=== PATIENT | female | born 1950 | race Caucasian/White ===

== ENCOUNTER 2021-05-03 14:47 | Inpatient (IN) ==
[2021-05-03] MEDS ORDERED: Ondansetron 4 MG/2 ML VIAL IVP PRN (18:01)
[2021-05-03] MEDS ORDERED: Naloxone 0.4 MG/ML INJ IVP PRN (18:01)
[2021-05-03] MEDS ORDERED: Acetaminophen 325 MG TABLET PO PRN (18:01)
[2021-05-03] MEDS ORDERED: *HR* Heparin 5,000 UNIT/ML VIAL IVP PRN ×2 (18:27)
[2021-05-03 18:40] LABS: Basophils % 0.5 %; Eosinophils # 0.2 K/mcL (0.0-0.6); Eosinophils % 2.8 %; Hematocrit 27.9 % (35.3-44.9); Hemoglobin 9.2 g/dL (11.5-15.4); Immature Granulocytes % 0.8 % (0-4); Lymphocytes # 0.7 K/mcL (0.6-4.6); Lymphocytes % 11.5 %; Mean Corpuscular Hemoglobin 30.6 pg (28.0-33.3); Mean Corpuscular Volume 92.7 fL (83.0-100.0); Mean Platelet Volume 10.6 fL (9.4-12.4); Monocytes # 0.6 K/mcL (0.0-1.3); Monocytes % 9.9 %; Neutrophils # 4.5 K/mcL (1.6-8.9); Platelet Count 130 K/mcL (140-400); Red Blood Count 3.01 M/mcL (3.82-4.97); Red Cell Distribution Width 16.6 % (11.5-14.5); Segmented Neutrophils % 74.5 %; White Blood Count 6.1 K/mcL (4.3-11.1)
[2021-05-03 18:49] LABS: VBG HCO3 26 mEq/L (21-27); VBG PCO2 44 mmHg (41-51); VBG PH 7.38 pH Units (7.32-7.42); VBG PO2 96 mmHg (25-50)
[2021-05-03 19:08] LABS: Alanine Aminotransferase 8 Units/L (7-52); Albumin/Globulin Ratio 1.1 (1.1-2.2); Alkaline Phosphatase 81 Units/L (34-104); Aspartate Amino Transferase 9 Units/L (13-39); BUN/Creatinine Ratio 21 (6-26); Bilirubin,Total 0.2 mg/dL (0.3-1.0); Blood Urea Nitrogen 45 mg/dL (8-23); Calcium 8.5 mg/dL (8.6-10.3); Carbon Dioxide 24 mEq/L (23-29); Chloride 109 mEq/L (98-107); Globulin 2.8 g/dL (2.4-3.5); Glucose 318 mg/dL (70-105); Magnesium 2.1 mg/dL (1.6-2.6); Osmolality,Calculated 322 (280-300); Potassium 4.4 mEq/L (3.5-5.1); Sodium 144 mEq/L (136-145); Total Protein 5.8 g/dL (6.4-8.9); Troponin I < 0.03 ng/mL (< 0.04); eGFR For African Americans 28 (> 60); eGFR For Non-African Americans 23 (> 60)
[2021-05-03] MEDS: MethylPREDNISolone 40 MG/ML VIAL IVP SCH (19:17)
[2021-05-03] MEDS: Heparin 25,000UNIT/250ML 1/2NS 25,000 UNIT/250 ML IV.SOLN IVC SCH (19:20)
[2021-05-03] MEDS ORDERED: D5% in Water 1,000 ML IVC PRN (19:28)
[2021-05-03] MEDS ORDERED: *HR* Dextrose 50 % in Water (Syg) 50 ML SYRINGE IVP PRN (19:28)
[2021-05-03] MEDS ORDERED: Dextrose Gel 15 GM/37.5 ML TUBE PO PRN ×2 (19:28)
[2021-05-03] MEDS: Ipratropium/Albuterol Neb 3 ML IH SCH ×2 (20:15→23:40)
[2021-05-03] MEDS: Insulin LISPRO 300 UNITS/3 ML VIAL SUBQ SCH ×2 (20:28→21:00)
[2021-05-03 21:05] LABS: Heparin anti-factor XA UFH 0.38 IU/mL (0.30-0.70); Prothrombin Time 10.9 Seconds (9.4-12.1)
[2021-05-03 21:07] LABS: Activated Partial Thrombo Time 48.6 Seconds (26.0-36.0)
[2021-05-03 23:39] LABS: Adenovirus Not Detected (Not Detect); Bordetella Pertussis Not Detected (Not Detect); Chlamydophila pneumoniae Not Detected (Not Detect); Coronavirus 229E Not Detected (Not Detect); Coronavirus HKU1 Not Detected (Not Detect); Coronavirus NL63 Not Detected (Not Detect); Coronavirus OC43 Not Detected (Not Detect); Human Metapneumovirus Not Detected (Not Detect); Human Rhinovirus/Enterovirus Not Detected (Not Detect); Influenza A Subtype 2009 H1 Not Detected (Not Detect); Influenza B Not Detected (Not Detect); Mycoplasma pneumoniae Not Detected (Not Detect); Parainfluenza Virus 1 Not Detected (Not Detect); Parainfluenza Virus 2 Not Detected (Not Detect); Parainfluenza Virus 3 Not Detected (Not Detect); Parainfluenza Virus 4 Not Detected (Not Detect); Respiratory Syncytial Virus Not Detected (Not Detect); SARS-CoV-2 Not Detected (Not Detect)
[2021-05-04 01:56] LABS: Hematocrit 28.1 % (35.3-44.9); Mean Corpuscular Hemoglobin 29.3 pg (28.0-33.3); Mean Corpuscular Volume 91.5 fL (83.0-100.0); Mean Platelet Volume 11.3 fL (9.4-12.4); Platelet Count 122 K/mcL (140-400); Red Blood Count 3.07 M/mcL (3.82-4.97); Red Cell Distribution Width 16.4 % (11.5-14.5); White Blood Count 5.1 K/mcL (4.3-11.1)
[2021-05-04 02:12] LABS: BUN/Creatinine Ratio 21 (6-26); Blood Urea Nitrogen 43 mg/dL (8-23); Calcium 8.7 mg/dL (8.6-10.3); Carbon Dioxide 24 mEq/L (23-29); Chloride 110 mEq/L (98-107); Glucose 322 mg/dL (70-105); Osmolality,Calculated 321 (280-300); Potassium 4.8 mEq/L (3.5-5.1); Sodium 144 mEq/L (136-145); eGFR For African Americans 30 (> 60); eGFR For Non-African Americans 24 (> 60)
[2021-05-04 02:26] LABS: Thyroid Stimulating Hormone 0.791 mcIU/mL (0.340-5.600)
[2021-05-04 02:47] LABS: Potassium,Urine 26.1 mEq/L; Sodium, Urine 49.7 mEq/L
[2021-05-04 02:56] LABS: Amorphous Sediment,Urine Few per hpf (None-Few); Bacteria,Urine Few per hpf (None-Few); Bilirubin,Urine Negative (Negative); Blood,Urine Moderate (Negative); Clarity,Urine Ex.Turbid (Clear); Color,Urine Yellow (Yellow); Glucose,Urine (UA) >=1000 mg/dL (Normal); Hyaline Casts,Urine Few per lpf (None Seen); Ketones,Urine 10 mg/dL (Negative); Leukocyte Esterase,Urine Large (Negative); Mucus,Urine Few per lpf (None-Few); Nitrite,Urine Negative (Negative); Protein,Urine >=300 mg/dL (Neg-Trace); RBC,Urine 15-30 per hpf (0-3); Specific Gravity,Urine 1.021 (1.010-1.025); Transitional Epi Cells,Urine Few per hpf (None-Few); Urobilinogen,Urine Normal (Normal); WBC,Urine TNTC per hpf (0-3)
[2021-05-04 03:07] LABS: Troponin I < 0.03 ng/mL (< 0.04)
[2021-05-04] MEDS: Ipratropium/Albuterol Neb 3 ML IH SCH ×6 (04:02→23:59)
[2021-05-04] MEDS ORDERED: Perflutren Lipid Microsphere 1.3 ML in 0.9 % Sodium Chloride 8.7 ML IVP PRN (04:12)
[2021-05-04] MEDS: MethylPREDNISolone 40 MG/ML VIAL IVP SCH ×2 (05:45→17:19)
[2021-05-04] MEDS: cefTRIAXone 1,000 MG in 0.9 % Sodium Chloride Mini Bag 100 ML IVPB SCH (08:25)
[2021-05-04] MEDS: Insulin LISPRO 300 UNITS/3 ML VIAL SUBQ SCH ×5 (08:25→20:57)
[2021-05-04] MEDS: Heparin 25,000UNIT/250ML 1/2NS 25,000 UNIT/250 ML IV.SOLN IVC SCH (15:03)
[2021-05-04] MEDS ORDERED: Budesonide/Formoterol 160/4.5 1 PUFF INH IH PRN (16:41)
[2021-05-04] MEDS ORDERED: NON-FORMULARY MEDICATION 1 EACH EACH (Alendronate Sodium [Fosamax] 70 MG Tablet) PO SCH (16:45)
[2021-05-04] MEDS: carvediloL 25 MG TABLET PO SCH (17:15)
[2021-05-04 18:30] LABS: Protein/Creatinine Ratio,Urine 11.6 mg/mg (0.00-0.20)
[2021-05-04] MEDS: gemfibroziL 600 MG TABLET PO SCH (20:56)
[2021-05-04] MEDS: amLODIPine 5 MG TABLET PO SCH (20:56)
[2021-05-04] MEDS: Pregabalin 50 MG CAPSULE PO SCH (20:56)
[2021-05-04] MEDS: tiZANidine 4 MG TABLET PO SCH (20:57)
[2021-05-04] MEDS ORDERED: Insulin DETEMIR 100 UNIT/ML X5UNITS SUBQ SCH (21:00)
[2021-05-05] MEDS: Ipratropium/Albuterol Neb 3 ML IH SCH ×6 (03:55→23:33)
[2021-05-05 04:18] LABS: Calcium 8.6 mg/dL (8.6-10.3)
[2021-05-05] MEDS: MethylPREDNISolone 40 MG/ML VIAL IVP SCH (06:04)
[2021-05-05] MEDS: cefTRIAXone 1,000 MG in 0.9 % Sodium Chloride Mini Bag 100 ML IVPB SCH (08:13)
[2021-05-05] MEDS: Heparin 25,000UNIT/250ML 1/2NS 25,000 UNIT/250 ML IV.SOLN IVC SCH (08:14)
[2021-05-05] MEDS: Insulin LISPRO 300 UNITS/3 ML VIAL SUBQ SCH ×7 (08:15→20:29)
[2021-05-05] MEDS: amLODIPine 5 MG TABLET PO SCH ×2 (08:17→20:31)
[2021-05-05] MEDS: Furosemide 20 MG TABLET PO SCH (08:17)
[2021-05-05] MEDS: carvediloL 25 MG TABLET PO SCH ×2 (08:17→17:44)
[2021-05-05] MEDS: Pregabalin 50 MG CAPSULE PO SCH ×3 (08:17→20:31)
[2021-05-05] MEDS: gemfibroziL 600 MG TABLET PO SCH ×2 (08:22→20:30)
[2021-05-05] MEDS ORDERED: Isovue-370 500 ML BOTTLE IVP ONE (14:13)
[2021-05-05] MEDS ORDERED: 0.9 % Sodium Chloride 1,000 ML IVC SCH (14:30)
[2021-05-05] MEDS: Budesonide/Formoterol 160/4.5 1 PUFF INH IH SCH (19:42)
[2021-05-05] MEDS: Insulin DETEMIR 100 UNIT/ML X5UNITS SUBQ SCH (20:30)
[2021-05-05] MEDS: tiZANidine 4 MG TABLET PO SCH (20:30)
[2021-05-06 01:51] LABS: Calcium 8.3 mg/dL (8.6-10.3); Potassium 4.4 mEq/L (3.5-5.1)
[2021-05-06] MEDS: Ipratropium/Albuterol Neb 3 ML IH SCH ×4 (04:04→15:47)
[2021-05-06] MEDS: Heparin 25,000UNIT/250ML 1/2NS 25,000 UNIT/250 ML IV.SOLN IVC SCH ×2 (04:28→05:24)
[2021-05-06] MEDS: Budesonide/Formoterol 160/4.5 1 PUFF INH IH SCH (07:44)
[2021-05-06] MEDS: Insulin LISPRO 300 UNITS/3 ML VIAL SUBQ SCH ×4 (08:06→12:11)
[2021-05-06] MEDS: Furosemide 20 MG TABLET PO SCH (08:08)
[2021-05-06] MEDS: carvediloL 25 MG TABLET PO SCH (08:08)
[2021-05-06] MEDS: Insulin DETEMIR 100 UNIT/ML X5UNITS SUBQ SCH (08:08)
[2021-05-06] MEDS: Pregabalin 50 MG CAPSULE PO SCH ×2 (08:08→16:13)
[2021-05-06] MEDS: amLODIPine 5 MG TABLET PO SCH (08:08)
[2021-05-06] MEDS: cefTRIAXone 1,000 MG in 0.9 % Sodium Chloride Mini Bag 100 ML IVPB SCH (08:09)
[2021-05-06] MEDS: gemfibroziL 600 MG TABLET PO SCH (08:14)
[2021-05-06] MEDS ORDERED: 0.9 % Sodium Chloride 1,000 ML IVC SCH (09:30)
[2021-05-06 15:17] LABS: Calcium 8.6 mg/dL (8.6-10.3)
[2021-05-06 15:50] VITALS: O2SAT 100
[2021-05-06 16:02] VITALS: BP 172/75; PULSE 72; TEMP 98
== END 2021-05-06 17:21 | DRG 372 ==
LOC: 2ANU → SUATTDRO 18:01
PROVIDERS: ADMIT Internal Medicine; ATTEND Family Medicine